=== PATIENT | male | born 1965 | race Caucasian/White ===

== ENCOUNTER → 2016-08-02 | Outpatient (CLI) | payer BC ==
[~2016-08-02] MED LIST: ALL300 PO; AMLO-110 PO; ATEN50TA8 PO; EZET10TA41 PO; LEVO150T22 PO
[2016-08-02 13:06] LABS: ESTIMATED AVERAGE GLUCOSE 189 mg/dl; HA1C FLAG Normal (Normal)
[2016-08-02 13:15] LABS: BLOOD UREA NITROGEN 14 mg/dl (7-18); BUN/CREATININE RATIO 17.1 (10-20); CARBON DIOXIDE 32 mmol/L (21-32); CHLORIDE 102 mmol/L (98-107); CREATININE 0.79 mg/dl (0.60-1.40); GLUCOSE 182 mg/dl (70-99); POTASSIUM 4.6 mmol/L (3.5-5.1); SODIUM 140 mmol/L (136-145)
[2016-08-02 13:28] LABS: CHOLESTEROL 133 mg/dl (0-200); HDL CHOLESTEROL 33 mg/dl; LDL CHOLESTEROL CALCULATED 56 mg/dl; THYROID STIMULATING HORMONE 0.544 uIu/ml (0.300-4.500); TRIGLYCERIDES 220 mg/dl (0-150); VERY LOW DENSITY LIPOPROT CALC 44 mg/dl
== END | disposition home or self-care (01) ==
LOC: C.LABPVFM 07:45
PROVIDERS: ATTEND Nurse Practitioner
DX: E03.9 Hypothyroidism, unspecified (principal); E78.00 Pure hypercholesterolemia, unspecified; E11.9 Type 2 diabetes mellitus without complications; I10 Essential (primary) hypertension

== ENCOUNTER → 2017-06-22 | Outpatient (CLI) | payer BC ==
[2017-06-22 13:01] LABS: HEMOGLOBIN A1C 7.2 % (4.5-5.6)
[2017-06-22 13:35] LABS: ALBUMIN 3.8 gm/dl (3.4-5.0); ALT/SGPT 62 U/L (12-78); AST/SGOT 29 U/L (15-37); BLOOD UREA NITROGEN 16 mg/dl (7-18); CALCIUM 8.9 mg/dl (8.5-10.1); CARBON DIOXIDE 30 mmol/L (21-32); CHOLESTEROL 165 mg/dl (0-200); CREATININE 0.87 mg/dl (0.60-1.40); GLUCOSE 139 mg/dl (70-99); POTASSIUM 4.5 mmol/L (3.5-5.1); SODIUM 138 mmol/L (136-145)
[2017-06-22 13:45] LABS: ALKALINE PHOSPHATASE 62 U/L (45-117); LDL CHOLESTEROL CALCULATED 82 mg/dl
== END | disposition home or self-care (01) ==
LOC: C.LABPVFM 08:18
PROVIDERS: ATTEND Nurse Practitioner
DX: E11.9 Type 2 diabetes mellitus without complications (principal); I10 Essential (primary) hypertension; E78.00 Pure hypercholesterolemia, unspecified; E03.9 Hypothyroidism, unspecified

== ENCOUNTER → 2017-06-30 | Outpatient (CLI) | payer BC ==
--- NOTE | 2017-06-30 12:24 | DIAGNOSTIC IMAGING REPORT ---
ABDOMEN ULTRASOUND FOR HERNIA CLINICAL HISTORY: K40.90 Right groin lump. Assess for hernia. COMPARISON STUDY: None. FINDINGS: Small reducible right inguinal hernia which contains fat and a loop of bowel. No masses or fluid collections identified within the right groin. IMPRESSION: Small fat and bowel containing reducible right inguinal hernia. Electronically signed by: Elier Orellana M.D. 06/30/2017 12:22 PM Dictated Date/Time: 06/30/2017 12:16 PM
== END | disposition home or self-care (01) ==
LOC: C.ULTR 11:47
PROVIDERS: ATTEND Nurse Practitioner
DX: K40.90 Unilateral inguinal hernia, without obstruction or gangrene, not specified as recurrent (principal)

== ENCOUNTER → 2017-07-07 | Outpatient (CLI) | payer BC ==
[~2017-07-07] MED LIST changes: +ALLO300T2 PO; +GLIM4TAB2 PO; +LEVO175T3 PO; +LISI-729 PO; +METF-384 PO; +SIMV40TA2 PO
== END | disposition home or self-care (01) ==
LOC: C.CPL 16:07
PROVIDERS: ATTEND Surgery
DX: Z01.810 Encounter for preprocedural cardiovascular examination (principal); K40.90 Unilateral inguinal hernia, without obstruction or gangrene, not specified as recurrent

== ENCOUNTER → 2017-08-12 | Day surgery (SDC) | payer BC ==
[2017-07-12 11:13] VITALS: Ht 160 cm; Wt 95.5 kg
[~2017-08-12] VITALS: Ht 160 cm; Wt 95.5 kg
[~2017-08-12] MED LIST changes: -ALL300 PO; +ATROPINE SULFATE 0.1 MG/ML 5ML SYR IV PRN; +BUPIVACAINE 0.5 % 5 MG/1 ML MPF 30ML VIAL ONE; +CEFAZOLIN 2000MG IV PUSH 15 ML IV SCH; +CEFAZOLIN SOD 1 GM VIAL ONE; +CEPH500C2 PO; -EZET10TA41 PO; +EpHEDrine SULFATE INJ 50 MG/ML AMP IV PRN; +EpHEDrine SULFATE INJ 50 MG/ML AMP ONE; +FENTANYL CITRATE INJ 50 MCG/1 ML 2 ML VIAL IV PRN; +FENTANYL CITRATE INJ 50 MCG/1 ML 2 ML VIAL ONE; +HYDR-5688 PO; +HYDROCODONE/ACETAMIN 5/325MG TAB PO PRN; +LACTATED RINGER'S 1000ML 1,000 ML IV SCH; -LEVO150T22 PO; +LIDOCAINE HCL 2% 2 ML VIAL (20MG/ML) ONE; +MIDAZOLAM HCL 1 MG/ML 2ML VIAL ONE; +ONDANSETRON INJ 2 MG/ML 2 ML VIAL IV PRN; +ONDANSETRON INJ 2 MG/ML 2 ML VIAL ONE; +PROMETHAZINE HCL INJ 6.25 MG in SODIUM CHLORIDE 0.9% 50ML 50 ML IV PRN; +PROPOFOL IV EMULSION 10 MG/ML 20 ML VIAL IV ONE; +ROCURONIUM BROMIDE 10 MG/ML 5 ML VIAL IV ONE; +SODIUM CHLORIDE 0.9% 1000ML 1,000 ML IV SCH; +SODIUM CHLORIDE 0.9% INJ 10 ML VIAL ONE; +SUCCINYLCHOLINE CHLORIDE 20 MG/ML 10 ML VIAL IV ONE
--- NOTE | 2017-08-12 09:20 | [facility] Operative Report ---
Operative Report Operative Date Aug 12, 2017. Pre-Operative Diagnosis Right Inguinal Hernia Post-Operative Diagnosis same Procedure(s) Performed Open Right Inguinal Hernia Repair Surgeon Dr. Shanta Ontiveros Clothing Room Supervisor Surgeon(s) Iban Cedeno PA-C Estimated Blood Loss 10ml Findings indirect lipoma and sac Specimens none Anesthesia Type General Complication(s) none Disposition Recovery Room / PACU I attest to the content of the Intraoperative Record and any orders documented therein. Any exceptions are noted below.
--- NOTE | 2017-08-12 09:39 | Discharge Instructions-SurgCtr ---
Discharge Instructions Date of Service Aug 12, 2017. Visit Reason for Visit: Right Inguinal Hernia Discharge Discharge Diagnosis / Problem: Rt ing hernia Discharge Goals Goal(s): Decrease discomfort, Improve function, Improve disease control Medications Stopped Medications Name(s): metformin stopped 48 hrs ago Activity Recommendations Activity Limitations: as noted below Lifting Limitations: no more than 25 pounds Exercise/Sports Limitations: until after follow-up appointment May Resume Sexual Activity: when tolerated Shower/Bathe: keep incision dry (for 2 days- may shower over incision on Monday 08/14) Anesthesia . Post Anesthesia Instructions: If you have had General Anesthesia or IV Sedation: * Do not drive today. * Resume driving when surgeon permits. * Do not make important decisions or sign legal documents today. * Call surgeon for: 1. Temperature elevations greater than 101 degrees F. 2. Uncontrollable pain. 3. Excessive bleeding. 4. Persistent nausea and vomiting. 5. Medication intolerance (nausea, vomiting or rash). * For nausea and vomiting use only clear liquids such as: tea, soda, bouillon until nausea subsides, then gradually increase diet as tolerated. * If you have any concerns or questions, call your surgeon's office. If physician is unavailable and it is an emergency, call 911 or go to the nearest emergency room. . Instructions / Follow-Up Instructions / Follow-Up SPECIAL CARE INSTRUCTIONS: * Cover incisions and change daily for comfort/drainage. * Leave steri strips in place avoid constipation- may use Senokot S and Milk of magnesia twice daily as directed on the package * May use ibuprofen for pain as tolerated. * Expect some swelling and bruising. Call your doctor if: * Temperature above 101 degrees * Pain not relieved by pain medicine ordered * There is increased drainage or redness from any incision * You have any unanswered questions or concerns [phone]. FOLLOW UP VISIT: If not already scheduled, please call the office for a follow-up visit. for next week- some suture removal OFFICE PHONE NUMBER: Dr. Ontiveros Office Diet Recommendations Home Diet: resume previous diet Procedures Procedures Performed: Open Right Inguinal Hernia Repair Pending Studies Studies pending at discharge: no Medical Emergencies . Who to Call and When: Medical Emergencies: If at any time you feel your situation is an emergency, please call 911 immediately. . Non-Emergent Contact Non-Emergency issues call your: Primary Care Provider, Surgeon . . "Provider Documentation" section prepared by Steve Ontiveros. .
--- NOTE | 2017-08-12 11:09 | OPERATIVE REPORT ---
DATE OF OPERATION: 08/12/2017 NAME OF OPERATION: Open right inguinal hernia repair. PREOPERATIVE DIAGNOSIS: Right inguinal hernia. POSTOPERATIVE DIAGNOSIS: Same with indirect defect and large lipoma. STAFF SURGEON: Steve Ontiveros MD FLAT SHEET MAKER: Iban Cedeno PA-C. ANESTHESIA: General. PROCEDURE: The patient was brought in the operating room and placed on the operating table in supine position. His lower abdomen on the right side was prepped and draped in usual fashion. 0.5% plain Marcaine was used to anesthetize skin and subcutaneous tissue and also the deep tissue. Incision was made carrying dissection down to the external oblique fibers through significant adipose tissue, the external oblique fibers along their length to the external ring. The patient had a large lipoma of the cord associated with the hernia sac. These were dissected away from the cord structures and reduced. The internal ring was then reinforced using a large mesh plug, secured to surrounding tissue using 2-0 Ethibond suture. Large mesh patch was then placed into the floor of the canal around the cord structures secured to surrounding tissue using 2-0 Ethibond suture. The external oblique fibers then closed over the mesh around the cord structures using 2-0 Ethibond suture. The site was irrigated with antibiotic solution also anesthetized using 0.5% plain Marcaine. Subcutaneous tissue was reapproximated using 2-0 plain catgut suture and the skin reapproximated using 4-0 nylon suture and Steri-Strips. The patient was transferred to recovery room in stable condition. I attest to the content of the Intraoperative Record and any orders documented therein. Any exception s are noted below.
[2017-08-12 11:27] VITALS: TEMP 36.5
--- NOTE | 2017-08-12 12:06 | Anesthesia Progress Nt - [facility] ---
Anesthesia Post Op Note Date & Time Aug 12, 2017 at 12:06 Vital Signs Pain Intensity: 3 Vital Signs Past 12 Hours Date Time Temp Pulse Resp B/P (MAP) Pulse Ox O2 Delivery O2 Flow Rate FiO2 08/12/17 11:59 88 16 151/88 (109) 90 Room Air 08/12/17 11:27 36.5 72 20 133/71 (91) 91 Room Air 08/12/17 09:59 36.3 69 12 162/91 93 Mask 6 08/12/17 07:00 36.5 61 16 122/65 (84) 96 Room Air Notes Mental Status: alert / awake / arousable, participated in evaluation Pt Amnestic to Procedure: Yes Nausea / Vomiting: adequately controlled Pain: adequately controlled Airway Patency, RR, SpO2: stable & adequate BP & HR: stable & adequate Hydration State: stable & adequate Anesthetic Complications: no major complications apparent
[2017-08-12 12:24] VITALS: BP 122/75; PULSE 80; O2SAT 90
== END | disposition home or self-care (01) ==
LOC: X.SURG 06:51
PROVIDERS: ATTEND Surgery
DX: K40.90 Unilateral inguinal hernia, without obstruction or gangrene, not specified as recurrent (principal); D17.6 Benign lipomatous neoplasm of spermatic cord; E11.9 Type 2 diabetes mellitus without complications; M10.9 Gout, unspecified; E78.00 Pure hypercholesterolemia, unspecified; I10 Essential (primary) hypertension; E03.9 Hypothyroidism, unspecified; E66.9 Obesity, unspecified; M19.90 Unspecified osteoarthritis, unspecified site; Z82.49 Family history of ischemic heart disease and other diseases of the circulatory system; Z83.3 Family history of diabetes mellitus; Z87.891 Personal history of nicotine dependence

== ENCOUNTER → 2017-11-16 | Outpatient (CLI) | payer BC ==
[~2017-11-16] MED LIST changes: -AMLO-110 PO; +AMLO5TAB3 PO; -ATROPINE SULFATE 0.1 MG/ML 5ML SYR IV PRN; -BUPIVACAINE 0.5 % 5 MG/1 ML MPF 30ML VIAL ONE; -CEFAZOLIN 2000MG IV PUSH 15 ML IV SCH; -CEFAZOLIN SOD 1 GM VIAL ONE; -CEPH500C2 PO; -EpHEDrine SULFATE INJ 50 MG/ML AMP IV PRN; -EpHEDrine SULFATE INJ 50 MG/ML AMP ONE; -FENTANYL CITRATE INJ 50 MCG/1 ML 2 ML VIAL IV PRN; -FENTANYL CITRATE INJ 50 MCG/1 ML 2 ML VIAL ONE; -HYDR-5688 PO; -HYDROCODONE/ACETAMIN 5/325MG TAB PO PRN; -LACTATED RINGER'S 1000ML 1,000 ML IV SCH; -LIDOCAINE HCL 2% 2 ML VIAL (20MG/ML) ONE; -MIDAZOLAM HCL 1 MG/ML 2ML VIAL ONE; -ONDANSETRON INJ 2 MG/ML 2 ML VIAL IV PRN; -ONDANSETRON INJ 2 MG/ML 2 ML VIAL ONE; -PROMETHAZINE HCL INJ 6.25 MG in SODIUM CHLORIDE 0.9% 50ML 50 ML IV PRN; -PROPOFOL IV EMULSION 10 MG/ML 20 ML VIAL IV ONE; -ROCURONIUM BROMIDE 10 MG/ML 5 ML VIAL IV ONE; -SODIUM CHLORIDE 0.9% 1000ML 1,000 ML IV SCH; -SODIUM CHLORIDE 0.9% INJ 10 ML VIAL ONE; -SUCCINYLCHOLINE CHLORIDE 20 MG/ML 10 ML VIAL IV ONE
[2017-11-16 15:26] LABS: BASO % 0.3 %; BASO ABS # 0.02 K/uL (0-0.2); EOS ABS # 0.59 K/uL (0-0.5); HEMATOCRIT 44.7 % (42-52); HEMOGLOBIN 15.2 g/dL (14.0-18.0); IG# 0.09 K/uL (0.00-0.02); LYMPH % 23.6 %; LYMPH ABS # 1.39 K/uL (1.2-3.4); MEAN CELL VOLUME 94.7 fL (80-100); MEAN CORPUSCULAR HEMOGLOBIN 32.2 pg (25-34); MEAN PLATELET VOLUME 11.1 fL (7.4-10.4); MONO % 11.7 %; MONO ABS # 0.69 K/uL (0.11-0.59); NEUT % 52.9 %; NEUT ABS # 3.12 K/uL (1.4-6.5); PLATELET COUNT 202 K/uL (130-400); RED CELL DISTRIBUTION WIDTH CV 14.1 % (11.5-14.5); RED CELL DISTRIBUTION WIDTH SD 48.2 fL (36.4-46.3)
--- NOTE | 2017-11-16 15:30 | DIAGNOSTIC IMAGING REPORT ---
CHEST 2 VIEWS ROUTINE HISTORY: 52 years-old Male pat preoperative exam. No acute chest complaints COMPARISON: Chest radiograph 06/05/2013 TECHNIQUE: PA and lateral views of the chest FINDINGS: Cardiac silhouette is upper limits of normal in size. Mild prominence of the right paratracheal tissues appears unchanged. No pneumothorax, pleural effusion, focal airspace consolidation or overt pulmonary edema. Bones of the chest appear grossly intact. IMPRESSION: No acute process. The above report was generated using voice recognition software. It may contain grammatical, syntax or spelling errors. Electronically signed by: Blanco Ruiz M.D. 11/16/2017 3:29 PM Dictated Date/Time: 11/16/2017 3:27 PM
[2017-11-16 15:35] LABS: BLOOD UREA NITROGEN 16 mg/dl (7-18); CALCIUM 8.8 mg/dl (8.5-10.1); CARBON DIOXIDE 28 mmol/L (21-32); GLUCOSE 219 mg/dl (70-99); POTASSIUM 4.5 mmol/L (3.5-5.1); SODIUM 139 mmol/L (136-145)
[2017-11-16 15:37] LABS: INR 0.9 (0.9-1.1); PTT PATIENT 24.1 SECONDS (21.0-31.0)
== END | disposition home or self-care (01) ==
LOC: C.CPL 14:14
PROVIDERS: ATTEND Orthopaedic Surgery
DX: Z01.812 Encounter for preprocedural laboratory examination (principal)

== ENCOUNTER → 2017-11-23 | Outpatient (CLI) | payer BC ==
[~2017-11-23] MED LIST changes: +ASPEC325 PO; +DULA1INJ; +RXC5 PO
[2017-11-23 13:48] LABS: HEMOGLOBIN A1C 8.4 % (4.5-5.6)
--- NOTE | 2017-12-16 09:15 | CODING QUERY NO DIAGNOSIS ---
TREATMENT RENDERED WITHOUT A DIAGNOSIS 63 To promote full compliance with coding requirements relating to patient care, physician participation is requested in all cases of geospatial technologist uncertainty. Please assist us with providing a diagnosis/symptom for the test(s) below: A diagnosis/symptom was not documented on your Order. A valid diagnosis/symptom is required to bill all insurances. Please remember that we are unable to code a diagnosis of rule out, probable, possible, questionable, or suspected. DOS 11/23/17 Tests that require a diagnosis: * HEMOGLOBIN A1C DIAGNOSIS: Provider Signature: Date: Thank you Sulema Rogers [employer] Once completed, please kindly fax back to [phone] For questions please call [phone]
== END | disposition home or self-care (01) ==
LOC: C.LABPVFM 07:32
PROVIDERS: ATTEND Nurse Practitioner
DX: E11.9 Type 2 diabetes mellitus without complications (principal)

== ENCOUNTER 2017-12-09 06:16 | Inpatient (IN) | payer BC ==
[2017-11-15 07:04] VITALS: BMI 37.0
--- NOTE | 2017-11-16 14:42 | PAT Medication Instructions ---
Service Date Nov 16, 2017. Current Home Medication List Allopurinol (Zyloprim), 300 MG PO QAM Amlodipine (Norvasc), 5 MG PO QAM Atenolol (Tenormin), 50 MG PO QAM Glimepiride (Glimepiride), 4 MG PO QAM Levothyroxine Sodium (Levothyroxine Sodium), 175 MCG PO QAM Lisinopril (Zestril), 5 MG PO QAM Metformin Hcl (Glucophage), 1,000 MG PO BID Simvastatin (Zocor), 40 MG PO QPM Medication Instructions For Your Scheduled Surgery - Hold the following medications the morning of surgery: Glimepiride (Glimepiride), 4 MG PO QAM Lisinopril (Zestril), 5 MG PO QAM Metformin Hcl (Glucophage), 1,000 MG PO BID - Take the following medications the morning of surgery with a sip of water: Atenolol (Tenormin), 50 MG PO QAM Levothyroxine Sodium (Levothyroxine Sodium), 175 MCG PO QAM Allopurinol (Zyloprim), 300 MG PO QAM Amlodipine (Norvasc), 5 MG PO QAM - Take the following medications as scheduled the night before surgery: Simvastatin (Zocor), 40 MG PO QPM Metformin Hcl (Glucophage), 1,000 MG PO BID If you have any questions please call us at [phone] or [phone] or [phone]
[2017-11-16 14:53] VITALS: BMI 39.0
--- NOTE | 2017-12-08 09:31 | HISTORY & PHYSICAL EXAMINATION ---
DATE OF ADMISSION: 12/09/2017 CHIEF COMPLAINT: Primary osteoarthritis of the right hip. HISTORY OF PRESENT ILLNESS: Reynold is a pleasant 52-year-old male who has been dealing with a several-year history of increasing right hip and groin pain. He has a lot of stiffness in his hip. He has trouble putting on his shoes and walking long distances. 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 X-rays and clinical examination are diagnostic for primary osteoarthritis of the right hip and after failing conservative treatment, he has elected to proceed with a right total hip arthroplasty. PAST MEDICAL HISTORY: Significant for type 2 diabetes, hypothyroidism, hyperlipidemia, hypertension. PAST SURGICAL HISTORY: Significant for a left knee arthroscopy, a rotator cuff repair of the right shoulder, and a hernia repair. ALLERGIES: None. MEDICATIONS: Include metformin, amlodipine, atenolol, lisinopril, allopurinol, and simvastatin. FAMILY HISTORY: Significant for diabetes. SOCIAL HISTORY: He is . He rarely drinks. He remains active. 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 REVIEW OF SYSTEMS: He complains of right hip and groin pain. All other pertinent review of systems are negative. PHYSICAL EXAMINATION: GENERAL: He is awake, alert, and oriented x3. He is in no apparent distress. He is very pleasant. HEENT: Pupils are equal, round, and reactive to light. Extraocular movements intact. Oral mucosa is pink and moist. HEART: Regular rate per radial pulse. LUNGS: Karina symmetrically bilaterally with no audible breath sounds. ABDOMEN: Soft, nontender, nondistended. MUSCULOSKELETAL: On physical examination of his right hip, he walks with an antalgic gait mostly because of the hip pain. I can flex him about 90 degrees. He has 10 degrees of internal rotation, 20 degrees of external rotation. He does have pain at end range of motion. Most of his pain is located within his groin. He has 5/5 muscle strength with a straight leg raise. IMAGING DATA: X-rays of the right hip do show advanced osteoarthritis with joint space narrowing, osteophyte formation, and [id number] articulation. IMPRESSION: Primary osteoarthritis of the right hip. PLAN: We will proceed with a right anterior total hip arthroplasty. Postoperatively, he will be placed on aspirin for DVT prophylaxis and kept in the hospital for postoperative medical management. He plans to use [facility] upon discharge. JAYY
[2017-12-09] VITALS (8 sets, daily range): BP systolic 92–125; BP diastolic 57–89; PULSE 52–67; TEMP 36.4–36.8; O2SAT 92–96; Ht 160 cm; Wt 93.0 kg
[~2017-12-09] VITALS: Ht 160 cm; Wt 93.0 kg
[~2017-12-09 06:16] MED LIST changes: +ACETAMINOPHEN 500 MG TAB PO SCH; -ASPEC325 PO; +CEFAZOLIN 2000MG IV PUSH 15 ML IV SCH; -DULA1INJ; +FAMOTIDINE 20 MG TAB PO SCH; +GABAPENTIN 900 MG PO SCH; +LACTATED RINGER'S 1000ML 1,000 ML IV SCH; +ROPIVACAINE 5MG/ML 30 ML 150 MG, BUPIVACAINE 0.5% MPF INJ 30 ML, EpINEphrine HCL INJ 0.... INFIL SCH; -RXC5 PO
[2017-12-09] MEDS ORDERED: DULA1INJ (06:44)
--- NOTE | 2017-12-09 06:51 | History & Physical Bridge Note ---
H&P Re-Evaluation Bridge Note: I have examined the patient, reviewed the History & Physical and in the interval since the performance of the History & Physical I have noted the following changes of clinical significance: No changes noted
[2017-12-09] MEDS ORDERED: BUPIVACAINE 0.5 % 5 MG/1 ML PF 10ML VIAL ONE (07:19)
[2017-12-09] MEDS ORDERED: HYDROmorphone INJ 0.5 MG/0.5 ML SYR IV PRN (08:00)
[2017-12-09] MEDS ORDERED: NALOXONE HCL 0.4 MG/1 ML VIAL/CARP IV PRN (08:00)
[2017-12-09] MEDS ORDERED: EpHEDrine SULFATE INJ 50 MG/ML AMP IV PRN (08:00)
[2017-12-09] MEDS ORDERED: ATROPINE SULFATE 0.1 MG/ML 5ML SYR IV PRN (08:00)
[2017-12-09] MEDS ORDERED: FLUMAZENIL 0.1 MG/1 ML 10 ML VIAL IV PRN (08:00)
[2017-12-09] MEDS ORDERED: ONDANSETRON INJ 2 MG/ML 2 ML VIAL IV PRN ×2 (08:00→11:45)
[2017-12-09] MEDS ORDERED: PHENYLEPHRINE 100MCG/ML 5ML SYR IV PRN (08:00)
[2017-12-09] MEDS ORDERED: MEPERIDINE HCL 25 MG/ML CARP IV PRN (08:00)
[2017-12-09] MEDS ORDERED: FENTANYL CITRATE INJ 50 MCG/1 ML 2 ML VIAL IV PRN (08:00)
[2017-12-09] MEDS ORDERED: LABETALOL HCL IV 5 MG/ML 20ML IV PRN (08:00)
[2017-12-09] MEDS ORDERED: MIDAZOLAM HCL 1 MG/ML 2ML VIAL ONE (08:09)
[2017-12-09] MEDS ORDERED: FENTANYL CITRATE INJ 50 MCG/1 ML 2 ML VIAL ONE (08:09)
[2017-12-09] MEDS ORDERED: PROPOFOL IV EMULSION 10 MG/ML 20 ML VIAL ONE ×2 (08:09→09:44)
[2017-12-09] MEDS ORDERED: BACITRACIN 50000 UNIT VIAL ONE (08:59)
[2017-12-09] MEDS ORDERED: ORTHO JOINT ANESTHETIC ONE (08:59)
[2017-12-09] MEDS: TRANEXAMIC ACID INJ 1,000 MG x 2 Bags IV SCH ×4 (09:08→13:26)
--- NOTE | 2017-12-09 11:41 | [facility] Post Operative Brief Note ---
Immediate Operative Summary Operative Date Dec 09, 2017. Pre-Operative Diagnosis Primary Osteoarthritis of the Right Hip Post-Operative Diagnosis Primary Osteoarthritis of the Right Hip Procedure(s) Performed Right Anterior Total Hip Arthroplasty, Uncemented Surgeon Dr. Wall Dna Sequencing Associate Surgeon(s) Peterson Ferrera PA-C Estimated Blood Loss 250cc Findings Consistent with Post-Op Diagnosis Specimens A: Right femoral head Anesthesia Type Spinal MAC
[2017-12-09] MEDS ORDERED: MAGNESIUM HYDROXIDE SUSP 30 ML UDC PO PRN (11:45)
[2017-12-09] MEDS ORDERED: DEXTROSE 50% 50 ML SYR IV PRN (11:45)
[2017-12-09] MEDS ORDERED: CARBOHYDRATES FOR HYPOGLYCEMIA PO PRN (11:45)
[2017-12-09] MEDS ORDERED: GLUCOSE 40% GEL 15 GM TUBE PO PRN (11:45)
[2017-12-09] MEDS ORDERED: BISACODYL 10 MG SUPP PR PRN (11:45)
[2017-12-09] MEDS ORDERED: GLUCOSE 10 TABS/TUBE PO PRN (11:45)
[2017-12-09] MEDS ORDERED: OXYCODONE HCL IR 5 MG TAB (IMMEDIATE RELEASE) PO PRN (11:45)
[2017-12-09] MEDS ORDERED: SOD PHOSPHATE/SOD BIPHOSPHATE ENEMA 132 ML BTL PR PRN (11:45)
[2017-12-09] MEDS ORDERED: MoRPHine SULFATE 2 MG/ML CARP IV PRN (11:45)
[2017-12-09] MEDS ORDERED: GLUCAGON FOR INJ 1 MG VIAL SQ PRN (11:45)
[2017-12-09] MEDS ORDERED: METOCLOPRAMIDE HCL INJ 5 MG/ML 2 ML VIAL IV PRN (11:45)
--- NOTE | 2017-12-09 11:47 | Discharge Instructions ---
Discharge Instructions Date of Service Dec 09, 2017. Admission Reason for Admission: Right Hip Degenerative Joint Disease Discharge Discharge Diagnosis / Problem: Right Total Hip Discharge Goals Goal(s): Decrease discomfort, Improve function Activity Recommendations Activity Limitations: as noted below . Instructions / Follow-Up Instructions / Follow-Up Activity and Therapy Recommendations: * If you are using [facility] then Physical Therapy will be provided until they feel you are ready to start Outpatient Physical Therapy. If you are not using a Home Health agency then Outpatient Physical Therapy should start about 3-5 days from your day of surgery. Therapy will last about 3-6 weeks * You were shown a series of exercises in the hospital. Do these exercises three times each day including the exercises you were shown in physical therapy. * Get up and walk several times each day.~ For the first four weeks, try not to stand or walk for more than one hour at a time. If you do stand or walk for more than one hour, you will not hurt anything, but your leg will likely swell.~ ~ * As you feel comfortable, you may change from the walker or crutches to a cane and~then to independent walking. Medications: * Narcotic You will likely be sent home from the hospital with a prescription for the narcotic pain medication that worked best throughout your stay. * Aspirin Most patients will be required to take Aspirin 325mg twice a day for 6 weeks after surgery. This is obtained [id number] and a prescription is not necessary. * Other medications may be prescribed for specific circumstances. If you have any questions, please call the office at . * Resume previous home medications unless otherwise instructed TEDs/Elastic Stockings: The white elastic stockings help limit swelling and prevent blood clots from forming in your legs. The more you wear them, the more they work. Wear them for six weeks. Dressing Care: You will likely have a purple VAC dressing after surgery. This dressing will keep the incision dry and promote early healing. After about 8 days the batteries will wear out and the VAC will lose suction. Simply remove the dressing at that time and throw everything away, including the small suction machine. Then, you may leave the jimena open to air or cover them with a dry dressing so they do not rub on your pants. The jimena will be removed at your 2 week follow-up appointment. Showering: You may shower immediately with the purple VAC dressing. Let the shower spray hit your opposite side and slowly pat the plastic dry. Do not soak the dressing. After the dressing is removed you may shower normally with the jimena exposed. Let soapy water run over the jimena and pat them dry. Things To Watch For: * Drainage from the incision site that occurs more than one week after your surgery. * Increased redness at the incision site. * Fever above 102 degrees Fahrenheit. * Unusual chest pain or shortness of breath. * [facility] at with any of the above problems Follow-Up Visit: Follow-up with Dr. Wall 2 weeks after your day of surgery. An appointment was probably scheduled when you signed-up for surgery in the office. If you have any questions call Office Instructions: More detailed instructions as well as Frequently Asked Questions were provided in a folder by our office when you signed-up for surgery. Please review these instructions when you get home. If you have any further questions or concerns, please feel free to call the office at [phone] Current Hospital Diet Patient's current hospital diet: Diabetes Type 2 Diet Discharge Diet Recommended Diet: Diabetes Type 2 Diet Procedures Procedures Performed: Right Anterior Total Hip Arthroplasty, Uncemented Pending Studies Studies pending at discharge: no Laboratory Results Hemoglobin A1c Test 11/23/17 07:40 Range/Units Estimated Average Glucose 194 mg/dl Hemoglobin A1c 8.4 H 4.5-5.6 % Medical Emergencies . Who to Call and When: Medical Emergencies: If at any time you feel your situation is an emergency, please call 911 immediately. . Non-Emergent Contact Non-Emergency issues call your: Surgeon Call Non-Emergent contact if: wound has increased drainage, wound has increased redness . "Provider Documentation" section prepared by Juan Wall. .
[2017-12-09] MEDS ORDERED: PHARMACY GLYCEMIC MGMT CONSULT PRN (11:54)
--- NOTE | 2017-12-09 12:25 | DIAGNOSTIC IMAGING REPORT ---
R HIP UNILATERAL 1 VIEW CLINICAL HISTORY: RT ANTERIOR HIParthroplasty. COMPARISON STUDY: Pelvis and right hip 11/07/2017. FINDINGS: Total fluoroscopy time was 37 seconds. 2 fluoroscopic spot images of the right hip. There is a right total hip arthroplasty. The hardware appears intact. No fracture or dislocation. IMPRESSION: Fluoroscopy provided for right total hip arthroplasty. Electronically signed by: Elier Orellana M.D. 12/09/2017 12:23 PM Dictated Date/Time: 12/09/2017 12:23 PM
--- NOTE | 2017-12-09 12:29 | DIAGNOSTIC IMAGING REPORT ---
AP PELVIS, CROSSTABLE LATERAL RIGHT HIP History: Right total hip arthroplasty. Degenerative arthritis. Postop. FINDINGS: The patient is status post a right total hip arthroplasty. The hardware is intact. No fracture or dislocation. Skin jimena are in place. IMPRESSION: Right total hip arthroplasty. No evidence for hardware complication Electronically signed by: Elier Orellana M.D. 12/09/2017 12:27 PM Dictated Date/Time: 12/09/2017 12:27 PM
--- NOTE | 2017-12-09 12:36 | Anesthesiology Progress Note ---
Anesthesia Post Op Note Date & Time Dec 09, 2017 at 12:36 Vital Signs Pain Intensity: 0 Vital Signs Past 12 Hours Date Time Temp Pulse Resp B/P (MAP) Pulse Ox O2 Delivery O2 Flow Rate FiO2 12/09/17 12:30 36.4 52 16 95/56 95 Nasal Cannula 2 12/09/17 12:20 52 16 102/44 98 Nasal Cannula 2 12/09/17 12:10 36.5 55 16 95/55 98 Nasal Cannula 2 12/09/17 12:00 52 16 94/57 96 Nasal Cannula 2 12/09/17 11:50 36.5 56 16 99/48 96 Nasal Cannula 2 12/09/17 06:48 36.8 61 20 120/68 95 Room Air Notes Mental Status: alert / awake / arousable, participated in evaluation Pt Amnestic to Procedure: Yes Nausea / Vomiting: adequately controlled Pain: adequately controlled Airway Patency, RR, SpO2: stable & adequate BP & HR: stable & adequate Hydration State: stable & adequate Neuraxial Anesthesia: was administered, sensory block is resolving Anesthetic Complications: no major complications apparent
--- NOTE | 2017-12-09 12:36 | OPERATIVE REPORT ---
DATE OF OPERATION: 12/09/2017 PREOPERATIVE DIAGNOSIS: Primary osteoarthritis, right hip. POSTOPERATIVE DIAGNOSIS: Primary osteoarthritis, right hip. PROCEDURE: Right total hip arthroplasty. SURGEON: Juan Wall DO JAVA PROJECT MANAGER: Peterson Ferrera PA-C, whose assistance was necessary for retraction and closure. ANESTHESIA: Spinal. COMPLICATIONS: None. CONDITION: Stable to PACU. INDICATIONS: Reynold is a pleasant 52-year-old male who presented to my office with chronic increasing right hip and groin pain. X-rays and clinical examination were diagnostic for severe osteoarthritis of the right hip. After failing conservative treatment, he elected to undergo a right total hip arthroplasty. DESCRIPTION OF PROCEDURE: On 12/09/2017, he arrived at [facility] for the above procedure. He was seen in the preoperative holding area and the operative extremity was identified and signed. He was given a preoperative antibiotic and a spinal anesthetic. He was taken back to the operating room, laid on the table in supine position and put under basic sedation. The right leg was brought out to a purist leg positioner. The right hip was then prepped and draped in sterile fashion. Time-out was done. The patient's operative extremity was properly identified. An anterior approach was used. Dissection was taken down through the fascia and the tensor was retracted laterally and the rectus was retracted medially. The circumflex vessels were ligated and the capsule was incised and tagged for later repair. The femoral neck was then resected along the intertrochanteric line and the femoral head was removed. Time was then spent doing a complete circumferential labral release, removing all periacetabular osteophytes. Sequential reaming of the acetabulum up to a size 49 reamer was done. Final reamings were done under fluoroscopy to ensure appropriate version. A 50 mm G7 cup was then impacted into place. A single 25 mm screw was placed and E1 neutral poly liner was then snapped into place. The surrounding soft tissues were injected with 100 mL of an orthopedic pain control cocktail. The proximal femur was then exposed. Sequential broaching up to a size 12 broach was done. A standard head and neck assembly was applied. I was happy with the overall size of the implant. I thought the leg was a little bit long. The hip was then dislocated. The broach was removed. The final size 12 mm standard offset Taperloc stem was then impacted into place. A 36 mm ceramic head with a -3 neck was then impacted into place. The hip was then reduced. Final fluoroscopic images showed anatomic alignment of the hip. The wound was then irrigated with 3 L normal saline solution with bacitracin. The capsule was then closed with #1 Vicryl suture. The fascia was closed with #1 PDS. Skin was closed with 2-0 Vicryl and jimena. A Prevena VAC dressing was placed. He was then transferred to a hospital bed and taken to postanesthesia care unit in stable. He tolerated the procedure well. IMPLANTS USED: I used a Biomet Taperloc total hip arthroplasty system with a size 12 mm standard offset Taperloc stem, a 50 mm G7 cup, a 36 mm E1 neutral poly liner, a 36 mm ceramic head with a -3 neck, and a single 25 mm screw. I attest to the content of the Intraoperative Record and any orders documented therein. Any exception s are noted below.
--- NOTE | 2017-12-09 13:51 | Pharmacy Progress Note ---
Glycemic Control Intl Consult Date of Service Dec 09, 2017. Scope Glycemic Pharmacist consulted by Dr Wall on 12/09/17 for glycemic control and to write orders per [facility] inpatient glycemic control protocol Objective Weight (Kilograms): 93.000 Accuchecks BSG (last 24hrs): Test 12/09/17 06:38 12/09/17 11:56 Bedside Glucose 100 mg/dl (70-99) 99 mg/dl (70-99) Recent Pertinent Medications Outpatient Anti-diabetic Regimen: * metformin 1000 mg BID, glimepiride 4 mg qAM, Dulaglutide 0.75 mg SQ once weekly * A1c = 8.4 % 11/23/17 Risk Factors for Insulin Resistance: * Steroids: Ortho pre-op (contains dexamethsone 4 mg) * Recent Surgery: R-ISRRAEL * Diet: T2DM Assessment & Plan ASSESSMENT: * 52 yr old T2DM male s/p R-ISRRAEL. * A1c indicates less than optimal outpatient control. * Will target BSG values less than 150 mg/dL to reduce the risk of post- operative infection/complications. * Pt is maintained on oral antidiabetic agents as an outpatient plus an injectable GLP-1 agonist. Will hold oral agents for admission and utilize SQ basal bolus insulin regimen which is the recommended regimen for inpatient glycemic control. * Will initiate weight based insulin dosing for insulin remedios patient and titrate based on BSG trends. PLAN FOR INPATIENT GLYCEMIC CONTROL: * Holding outpatient oral diabetes medications * Basal insulin * Lantus 20 units SQ x 1 dose * Correctional Insulin * NOVOLOG per scale ACHS or Q6hrs while NPO * Goal Range: Low 110 mg/dL - High 140 mg/dL * Correction Factor: 20 mg/dL/unit * Nutritional / Prandial insulin per carb ratio of 1 unit per 8 grams CHO consumed Thank you.
[2017-12-09] MEDS: ACETAMINOPHEN IV 1,000 MG in EMPTY BAG 0 ML IV SCH ×2 (14:41→21:22)
[2017-12-09] MEDS: KETOROLAC TROMETHAMINE 30 MG/ML VIAL IV. SCH ×2 (14:42→19:24)
[2017-12-09] MEDS ORDERED: LANTUS PER UNIT CHARGE SQ ONE (15:15)
[2017-12-09] MEDS: CEFAZOLIN IV 2,000 MG in SYRINGE 0 ML IV SCH ×2 (15:48→23:53)
[2017-12-09] MEDS: INSULIN ASPART 100 UNITS/ML 3 ML PEN SC SCH ×2 (17:31→21:17)
[2017-12-09] MEDS: SODIUM CHLORIDE 0.9% 1000ML 1,000 ML IV SCH (19:26)
[2017-12-09] MEDS ORDERED: NURSING VERBAL MED ORDER ONE (20:45)
[2017-12-09] MEDS ORDERED: SIMVASTATIN 40 MG TAB PO SCH (21:00)
[2017-12-09] MEDS ORDERED: SENNA 8.6 MG TAB PO SCH (21:00)
[2017-12-09] MEDS: ASPIRIN 325 MG ECTAB PO SCH (21:18)
[2017-12-09] MEDS: DOCUSATE SODIUM 100 MG CAP PO SCH (21:18)
[2017-12-10] MEDS: KETOROLAC TROMETHAMINE 30 MG/ML VIAL IV. SCH ×2 (02:19→08:38)
[2017-12-10 02:26] VITALS: BP 115/74; PULSE 65; TEMP 36.3; O2SAT 95
[2017-12-10] MEDS: SODIUM CHLORIDE 0.9% 1000ML 1,000 ML IV SCH (05:21)
[2017-12-10] MEDS: ACETAMINOPHEN IV 1,000 MG in EMPTY BAG 0 ML IV SCH (05:21)
[2017-12-10] MEDS ORDERED: LEVOTHYROXINE 175 MCG TAB PO SCH (06:00)
[2017-12-10 06:15] LABS: BASO % 0.1 %; BASO ABS # 0.01 K/uL (0-0.2); EOS % 0.4 %; EOS ABS # 0.03 K/uL (0-0.5); HEMATOCRIT 34.3 % (42-52); HEMOGLOBIN 11.4 g/dL (14.0-18.0); IG# 0.03 K/uL (0.00-0.02); LYMPH % 10.8 %; LYMPH ABS # 0.85 K/uL (1.2-3.4); MEAN CORPUSCULAR HEMOGLOBIN 31.2 pg (25-34); MEAN CORPUSCULAR HGB CONC 33.2 g/dl (32-36); MEAN PLATELET VOLUME 10.5 fL (7.4-10.4); MONO % 12.8 %; MONO ABS # 1.01 K/uL (0.11-0.59); NEUT % 75.5 %; NEUT ABS # 5.94 K/uL (1.4-6.5); PLATELET COUNT 129 K/uL (130-400); RED CELL DISTRIBUTION WIDTH SD 48.3 fL (36.4-46.3); WHITE BLOOD COUNT 7.87 K/uL (4.8-10.8)
[2017-12-10 06:49] LABS: CALCIUM 8.1 mg/dl (8.5-10.1); CREATININE 0.71 mg/dl (0.60-1.40); POTASSIUM 4.1 mmol/L (3.5-5.1)
[2017-12-10] MEDS: DOCUSATE SODIUM 100 MG CAP PO SCH (08:38)
[2017-12-10] MEDS: ASPIRIN 325 MG ECTAB PO SCH (08:42)
[2017-12-10 08:45] VITALS: BP 109/69; PULSE 63; TEMP 36.6; O2SAT 97
[2017-12-10] MEDS ORDERED: RXC5 PO (08:46)
[2017-12-10] MEDS ORDERED: ASPEC325 PO (08:46)
[2017-12-10] MEDS: INSULIN ASPART 100 UNITS/ML 3 ML PEN SC SCH (08:50)
[2017-12-10] MEDS ORDERED: LISINOPRIL 5 MG TAB PO SCH (09:00)
[2017-12-10] MEDS ORDERED: ALLOPURINOL 300 MG TAB PO SCH (09:00)
[2017-12-10] MEDS ORDERED: MULTIVITAMIN TAB PO SCH (09:00)
[2017-12-10] MEDS ORDERED: AMLODIPINE BESYLATE 5 MG TAB PO SCH (09:00)
--- NOTE | 2017-12-10 09:40 | PROGRESS NOTE ---
DATE: 12/10/2017 CHIEF COMPLAINT: Status post right total hip arthroplasty, postop day #1. PROGRESS: Reynold was seen and examined at bedside today. Overall, he is doing very well. He has been up and ambulating in the hallways already around the nurses' station. His pain is controlled. He has no complaints. PHYSICAL EXAMINATION: RIGHT HIP: The Prevena VAC dressing is to suction. His leg lengths are equal. He has active extension of his quad. He is neurovascularly intact. DATA: He has an H and H today of 11.4 and 34.3. His glucose is 110. His vital signs are all stable on room air. He is voiding on his own. X-rays postoperatively of the right hip show the prosthesis to be in anatomic alignment without any evidence of fracture, dislocation or loosening. IMPRESSION: Status post right total hip arthroplasty, postoperative day #1. PLAN: At this point, he is doing very well and happy with his progress. He has already been up and ambulating around the nurses' station. He is on aspirin for DVT prophylaxis. He will be seen by physical therapy today and likely discharge to home later this afternoon.
[2017-12-10 10:50] VITALS: BP 109/69; PULSE 63; TEMP 36.6; O2SAT 97
[2017-12-10] MEDS ORDERED: ACETAMINOPHEN 500 MG TAB PO SCH (14:00)
--- NOTE | 2017-12-12 07:58 | DISCHARGE SUMMARY ---
DISCHARGE DIAGNOSIS: Osteoarthritis of the right hip. PROCEDURE: Right total hip arthroplasty on 12/09/[address] Juan Wall. DISCHARGE INSTRUCTIONS: 1. Aspirin 325 mg twice a day for 6 weeks. 2. Oxycodone 5-10 mg every 4 hours as needed for pain. 3. Allopurinol 300 mg daily. 4. Norvasc 5 mg daily. 5. Tenormin 50 mg daily. 6. Trulicity injections. 7. Glimepiride 4 mg daily. 8. Synthroid 175 mcg daily. 9. Zestril 5 mg daily. 10. Glucophage 1000 mg twice a day. 11. Zocor 40 mg daily. 12. Followed by Dr. Wall in 2 weeks. 13. Call the office of Dr. Wall with any questions or concerns. HOSPITAL COURSE: Reynold is pleasant 52-year-old male who presented to my office with complaints of increasing right hip and groin pain. X-rays and clinical examination were diagnostic for primary osteoarthritis of the right hip. After failing conservative treatment, he elected to undergo a right total hip arthroplasty. On 12/09/2017, he arrived at [facility] and underwent an anterior right total hip arthroplasty without complications. He had a spinal anesthetic. Postoperatively, he was discharged to general orthopedic floors. He was started on aspirin for DVT prophylaxis. His hospital course was uneventful. On postop day #1, his H and H was stable at 11.4 and 34.3. He was up and ambulating very well around the nurses' station and with physical therapy. His pain was controlled. He was subsequently discharged to home with the above instructions.
== END 2017-12-10 11:24 | disposition home health service (06) | DRG 470 ==
LOC: C.ACU 06:16 → C.3E 11:46 → ENRESERV 12:09
PROVIDERS: ADMIT Orthopaedic Surgery; ATTEND Orthopaedic Surgery
PROC: 0SR904Z Replacement of Right Hip Joint with Ceramic on Polyethylene Synthetic Substitute, Open Approach (ICD-10-PCS; principal; 2017-12-09 09:00)
DX: M16.11 Unilateral primary osteoarthritis, right hip (principal); E11.9 Type 2 diabetes mellitus without complications; E03.9 Hypothyroidism, unspecified; E78.5 Hyperlipidemia, unspecified; I10 Essential (primary) hypertension; Z79.84 Long term (current) use of oral hypoglycemic drugs